=== PATIENT | female | born 1960 | race American Indian/Alaskan Native ===

== ENCOUNTER 2020-04-25 08:33 | Outpatient (CLI) | payer OTHER ==
--- NOTE | 2020-04-25 10:54 | Mammography Report ---
DIGITAL SCREENING MAMMOGRAM WITH CAD, 04/25/2020 CLINICAL INFORMATION / INDICATION: Routine screening mammography. TECHNIQUE: Digital bilateral 2D mammography was obtained in the craniocaudal and mediolateral obliqu e projections. This examination was interpreted with the benefit of Computer-Aided Detection analysis . COMPARISON: 04/01/2016, 02/28/2018 FINDINGS: Breast Density: There are scattered areas of fibroglandular density. No dominant mass, suspicious calcifications, or architectural distortion in either breast. Bilateral saline prepectoral breast implants are present and are unchanged in appearance. Overall, no interval change in the appearance of the mammogram. IMPRESSION: No mammographic evidence of malignancy. Follow up recommendation: Routine yearly BI-RADS Category 2: Benign. A "normal" or negative report should not discourage follow up or biopsy of a clinically significant f inding. A written summary of these findings will be mailed to the patient. The patient will be entered into a mammography reporting system which will generate a reminder letter for the patient's next appointmen t at the appropriate interval. The [employer] recommends yearly mammograms starting at age 40 and continuing as l demario as a woman is in good health. Breast MRI is recommended for women with an approximate 20-25% or greater lifetime risk of breast cancer, including women with a strong family history of breast or ova celestine cancer or who have been treated for Hodgkin's disease. Signer Name: Dorcas Espinosa MD Signed: 04/25/2020 10:50 AM Workstation Name: [email or web address]
== END 2020-04-25 08:34 | disposition home or self-care (01) ==
LOC: SPVWC 08:33
DX: Z12.31 Encounter for screening mammogram for malignant neoplasm of breast (principal)
CPT/HCPCS: 77067

== ENCOUNTER 2020-08-12 08:36 | Emergency (ER) | payer OTHER ==
[2020-08-12] MEDS ORDERED: ONDANSETRON 4 MG/2 ML INJ IV ONE (09:06)
[2020-08-12] MEDS ORDERED: fentaNYL 100 MCG/2 ML INJ IV ONE (09:06)
[2020-08-12] MEDS ORDERED: TETANUS,DIPH,PERTUSS(ACELL) VACCINE 0.5 ML SYRINGE IM ONE (09:06)
[2020-08-12] MEDS ORDERED: BACITRACIN ZINC OINT 28.4 GM TP ONE (09:06)
--- NOTE | 2020-08-12 09:10 | Emergency Department Report ---
HPI - General Chief Complaint: Head Injury Time Seen by Provider: 08/12/20 08:57 - HPI HPI: Room 3 The patient is a 60-year-old female present with a chief complaint of pain after fall downstairs. The patient states she was leaving for work this morning when she believes her high heels got caught in the carpet causing her to fall down approximately 6 stairs. Patient states she struck her face on the tile floor but did not lose consciousness. Patient complains of headache/facial pain, right shoulder pain and bilateral knee pain. Patient gives her pain a score of 5/10. ED Past Medical Hx - Past Medical History Hx Diabetes: Yes - Surgical History Past Surgical History?: No Additional Surgical History: HYSTO/ BREAST IMPLANTS/ HEMMRHOIDS - Family History Family history: no significant - Social History Smoking Status: Never Smoker Substance Use Type: None (Denies illicit drug use), Alcohol (Occasional) - Medications Home Medications: Home Medications Medication Instructions Recorded Confirmed Last Taken Type Cyclobenzaprine [Flexeril] 10 mg PO TID PRN #10 tablet 08/12/20 Unknown Rx HYDROcodone/APAP 5-325 [Steptoe 1 - 2 each PO Q6HR PRN #10 tablet 08/12/20 Unknown Rx 5/325] Ibuprofen [Motrin 800 MG tab] 800 mg PO Q8HR PRN #20 tablet 08/12/20 Unknown Rx ED Review of Systems ROS: Stated complaint: HEAD INJURY/FALL Other details as noted in HPI Constitutional: no symptoms reported Eyes: denies: eye pain ENT: denies: throat pain Respiratory: no symptoms reported Cardiovascular: denies: chest pain Endocrine: no symptoms reported Gastrointestinal: denies: abdominal pain Genitourinary: denies: dysuria Musculoskeletal: denies: back pain Neurological: headache Physical Exam - Physical Exam Vital Signs: Vital Signs 08/12/20 08/12/20 08:50 09:02 Temperature 98.6 F Pulse Rate 75 Respiratory 21 Rate Blood Pressure 150/82 147/82 O2 Sat by Pulse 100 100 Oximetry Physical Exam: GENERAL: The patient is well-developed well-nourished female lying on stretcher appearing slightly anxious. [] HEENT: Normocephalic. Hematoma to right forehead. Abrasion overlying right cheek. Extraocular motions are intact. Patient has moist mucous membranes. NECK: There is no axial step-off CHEST/LUNGS: Clear to auscultation. There is no respiratory distress noted. HEART/CARDIOVASCULAR: Regular. There is no tachycardia. There is no gallop rub or murmur. ABDOMEN: Abdomen is soft, nontender. Patient has normal bowel sounds. There is no abdominal distention. SKIN: Abrasion to right cheek. There is no rash. There is no edema. There is no diaphoresis. NEURO: The patient is awake, alert, and oriented. The patient is cooperative. The patient has no focal neurologic deficits. The patient has normal speech MUSCULOSKELETAL: There is tenderness to palpation of the right shoulder and bilateral knees. There is no tenderness to palpation of the axial spine, bilateral upper extremities, bilateral thighs or shins. ED Course Vital Signs 08/12/20 08/12/20 08:50 09:02 Temperature 98.6 F Pulse Rate 75 Respiratory 21 Rate Blood Pressure 150/82 147/82 O2 Sat by Pulse 100 100 Oximetry ED Medical Decision Making - Lab Data Result diagrams: 08/12/20 12:07 08/12/20 12:07 Laboratory Tests 08/12/20 08/12/20 12:07 12:07 WBC 6.0 RBC 4.05 Hgb 12.2 Hct 36.0 MCV 89 MCH 30 MCHC 34 RDW 13.6 Plt Count 224 Lymph % (Auto) 27.2 Kings % (Auto) 6.9 Eos % (Auto) 0.9 Baso % (Auto) 0.3 Lymph # (Auto) 1.6 Kings # (Auto) 0.4 Eos # (Auto) 0.1 Baso # (Auto) 0.0 Seg Neutrophils % 64.7 Seg Neutrophils # 3.9 Sodium 138 Potassium 3.8 Chloride 104.2 Carbon Dioxide 27 Anion Gap 11 BUN 12 Creatinine 0.6 Estimated GFR > 60 BUN/Creatinine Ratio 20 Glucose 98 Calcium 9.2 - Radiology Data Radiology results: report reviewed (Right shoulder x-ray, bilateral knee x-ray, CT cervical spine, CT head, CT facial bone, CT head with and without contrast), image reviewed (Right shoulder x-ray, bilateral knee x-ray, CT cervical spine, CT head, CT facial bones, CT head with and without contrast) interpreted by me: Right shoulder x-ray-no acute fracture, no dislocation. No foreign body seen Bilateral knee x-ray-no acute fracture, no dislocation. [address] [address] XRay Report Signed Patient: ARLETH GALE MR#: [id number] : 1960 Acct:[id number] Age/Sex: 60 / F ADM Date: 08/12/20 Loc: ED Attending Dr: Ordering Physician: MARYELLEN WOODS MD Date of Service: 08/12/20 Procedure(s): XR shoulder 2+V RT Accession Number(s): [id number] cc: MARYELLEN WOODS MD Fluoro Time In Minutes: Bilateral knees INDICATION: Knee pain FINDINGS: There is mild patellofemoral degenerative change with joint space narrowing in b ilateral knees. Otherwise alignment appears normal. No acute fracture dislocation. Right shoulder 3 views INDICATION: Pain FINDINGS: Mild degenerative change of the greater tuberosity. Mild AC degenerative change. No acute fracture dislocation. Signer Name: Sathish Rodríguez MD Signed: 08/12/2020 10:17 AM Workstation Name: [employer] Transcribed By: CW Dictated By: KRISHAN RODRÍGUEZ MD Electronically Authenticated By: KRISHAN RODRÍGUEZ MD Signed Date/Time: 08/12/20 1017 DD/ 1016 TD/TT: [address] [address] XRay Report Signed Patient: ARLETH GALE MR#: [id number] : [birth year] Acct:[id number] Age/Sex: 60 / F ADM Date: 08/12/20 Loc: ED Attending Dr: Ordering Physician: MARYELLEN WOODS MD Date of Service: 08/12/20 Procedure(s): XR knee BILAT 3V Accession Number(s): [id number] cc: MARYELLEN WOODS MD Fluoro Time In Minutes: Bilateral knees INDICATION: Knee pain FINDINGS: There is mild patellofemoral degenerative change with joint space narrowing in bilateral knees. Otherwise alignment appears normal. No acute fracture dislocation. Right shoulder 3 views INDICATION: Pain FINDINGS: Mild degenerative change of the greater tuberosity. Mild AC degenerative change. No acute fracture dislocation. Signer Name: Sathish Rodríguez MD Signed: 08/12/2020 10:17 AM Workstation Name: [id number] Transcribed By: CW Dictated By: KRISHAN RODRÍGUEZ MD Electronically Authenticated By: KRISHAN RODRÍGUEZ MD Signed Date/Time: 08/12/20 1017 DD/ 1016 TD/TT: Print Cancel [facility] [address] [place] [address] Cat Scan Report Signed Patient: ARLETH GALE MR#: [id number] : 1960 Acct:[id number] Age/Sex: 60 / F ADM Date: 08/12/20 Loc: ED Attending Dr: Ordering Physician: MARYELLEN WOODS MD Date of Service: 08/12/20 Procedure(s): CT cervical spine wo con Accession Number(s): [id number] cc: MARYELLEN WOODS MD CT CERVICAL SPINE WITHOUT CONTRAST INDICATION / CLINICAL INFORMATION: Pain after falling down stairs. TECHNIQUE: Axial CT images were obtained through the cervical spine. Sagittal and coronal reformatted images were produced. All CT scans at this location are performed using CT dose reduction for ALARA by means of automated exposure control. COMPARISON: None available. FINDINGS: ALIGNMENT: Normal alignment is maintained throughout cervical region. There is no indication of traumatic subluxation. VERTEBRAE: Vertebral morphology is fairly well-maintained. There is no evidence of fracture. DISC SPACES: Disc height is decreased slightly at the C5-6 and C6-7 levels. DEGENERATIVE CHANGES: Small anterior osteophytes are observed at the C5-6 and C6-7 levels. There is no indication of facet or uncovertebral arthropathy. There is no indication of neuroforaminal narrowing. CRANIOCERVICAL JUNCTION:No significant abnormality. SPINAL CANAL: Central spinal canal is adequately maintained throughout. PARASPINAL SOFT TISSUES: No significant abnormality. LUNG APICES: No significant abnormality of visualized lungs. IMPRESSION: 1. No indication of fracture, traumatic subluxation or significant degenerative change. Signer Name: Nigel Ward MD Signed: 08/12/2020 11:04 AM Workstation Name: [email or web address] Transcribed By: Dictated By: Nigel Ward MD Electronically Authenticated By: Nigel Ward MD Signed Date/Time: 08/12/20 1104 DD/ 1051 TD/TT: Print Cancel [facility] [address] [place] [id number] Cat Scan Report Signed Patient: ARLETH GALE MR#: [id number] : 1960 Acct:[id number] Age/Sex: 60 / F ADM Date: 08/12/20 Loc: ED Attending Dr: Ordering Physician: MARYELLEN WOODS MD Date of Service: 08/12/20 Procedure(s): CT head/brain wo/w con Accession Number(s): [id number] cc: MARYELLEN WOODS MD CT HEAD WITHOUT AND WITH CONTRAST INDICATION / CLINICAL INFORMATION: MAIN. Headache after fall. TECHNIQUE: All CT scans at this location are performed using CT dose reduction for ALARA by means of automated exposure control. COMPARISON: 08/12/2020 FINDINGS: HEMORRHAGE: None. EXTRA-AXIAL SPACES: Normal in size and morphology for the patient's age. The previously noted area of hyperattenuation in the right extra axial space is not visualized on this exam and may have represented volume averaging. VENTRICULAR SYSTEM: Normal in size and morphology for the patient's age. CEREBRAL PARENCHYMA: Chronic microvascular changes in the periventricular and subcortical white matter are similar. No acute territorial infarct. MIDLINE SHIFT OR HERNIATION: None. CEREBELLUM / BRAINSTEM: No significant abnormality. ORBITS: Normal as visualized. SOFT TISSUES of HEAD: . Persistent small right frontal scalp hematoma. CALVARIUM: No significant abnormality. PARANASAL SINUSES / MASTOID AIR CELLS: Normal as visualized. ADDITIONAL FINDINGS: No abnormal post contrast enhancement. IMPRESSION: 1. Persistent small right frontal scalp hematoma without acute intracranial abnormality. Signer Name: Noah Starks MD Signed: 08/12/2020 2:45 PM Workstation Name: [id number] Transcribed By: CS Dictated By: Noah Starks MD Electronically Authenticated By: Noah Starks MD Signed Date/Time: 08/12/20 1445 DD/ 1425 TD/TT: Print - Differential Diagnosis Close head injury, ICH, facial contusion, shoulder contusion, Critical care attestation.: If time is entered above; I have spent that time in minutes in the direct care of this critically ill patient, excluding procedure time. ED Disposition Clinical Impression: Closed head injury, Contusion of right shoulder, Contusion of right knee, Contusion of left knee Disposition: DC- TO HOME OR SELFCARE Is pt being admited?: No Does the pt Need Aspirin: No Condition: Stable Instructions: Contusion, Ircu-sj-Ookz, Head Injury, Adult, Xuet-kz-Psji Additional Instructions: Return to the emergency department should you develop worsening symptoms, inability to tolerate food or liquids, high fever or any other concerns Prescriptions: Cyclobenzaprine [Flexeril] 10 mg PO TID PRN #10 tablet PRN Reason: Muscle Spasm Ibuprofen [Motrin 800 MG tab] 800 mg PO Q8HR PRN #20 tablet PRN Reason: Pain, Moderate (4-6) HYDROcodone/APAP 5-325 [Steptoe 5/325] 1 - 2 each PO Q6HR PRN #10 tablet PRN Reason: Pain Referrals: PRIMARY CARE, [Primary Care Provider] - 3-5 Days Time of Disposition: 14:57
--- NOTE | 2020-08-12 10:21 | XRay Report ---
Bilateral knees INDICATION: Knee pain FINDINGS: There is mild patellofemoral degenerative change with joint space narrowing in bilateral kn ees. Otherwise alignment appears normal. No acute fracture dislocation. Right shoulder 3 views INDICATION: Pain FINDINGS: Mild degenerative change of the greater tuberosity. Mild AC degenerative change. No acute f racture dislocation. Signer Name: Sathish Rodríguez MD Signed: 08/12/2020 10:17 AM Workstation Name: [facility] [id number]
--- NOTE | 2020-08-12 10:21 | XRay Report ---
Bilateral knees INDICATION: Knee pain FINDINGS: There is mild patellofemoral degenerative change with joint space narrowing in bilateral kn ees. Otherwise alignment appears normal. No acute fracture dislocation. Right shoulder 3 views INDICATION: Pain FINDINGS: Mild degenerative change of the greater tuberosity. Mild AC degenerative change. No acute f racture dislocation. Signer Name: Sathish Rodríguez MD Signed: 08/12/2020 10:17 AM Workstation Name: [facility] [id number]
--- NOTE | 2020-08-12 11:07 | Cat Scan Report ---
NONENHANCED CT SCAN OF THE HEAD: INDICATION / CLINICAL INFORMATION: 60 years Female; Pain after falling down stairs. TECHNIQUE: Routine CT head without contrast. All CT scans at this location are performed using CT dos e reduction for ALARA by means of automated exposure control. COMPARISON: None. FINDINGS: BRAIN / INTRACRANIAL CONTENTS: Right supraorbital scalp hematoma; focal extra-axial lesion with incre ased CT attenuation measuring 2 to 3 mm (image #24 in the transverse plane); though trauma to the ri ght side, this appears to be rather than a hematoma. I would like to repeat the CT scan before and af ter intravenous contrast in a week if symptoms do not progress. No cerebral hemorrhage, mass effect, midline shift, hydrocephalus, or acute, large territorial infarc t. No chronic infarct or focal atrophy. Normal brain volume and ventricular/sulcal size for age. No s ignificant white matter abnormality. CRANIOCERVICAL JUNCTION: No significant abnormality. ORBITS: No significant abnormality of visualized orbits. SINUSES / MASTOIDS: No significant abnormality of the visualized paranasal sinuses or mastoid air susu ls. ADDITIONAL FINDINGS: Partial empty sella IMPRESSION: Right supraorbital scalp hematoma; 2 to 3 mm sized small extra-axial lesion in the right frontal johan on; this appears to be more meningioma; if symptoms do not progress, please repeat nonenhanced and co ntrast-enhanced CT scan Signer Name: Ramandeep Myles MD Signed: 08/12/2020 11:02 AM Workstation Name: [id number]
--- NOTE | 2020-08-12 11:08 | Cat Scan Report ---
CT CERVICAL SPINE WITHOUT CONTRAST INDICATION / CLINICAL INFORMATION: Pain after falling down stairs. TECHNIQUE: Axial CT images were obtained through the cervical spine. Sagittal and coronal reformatted images wer e produced. All CT scans at this location are performed using CT dose reduction for ALARA by means of automated exposure control. COMPARISON: None available. FINDINGS: ALIGNMENT: Normal alignment is maintained throughout cervical region. There is no indication of traum atic subluxation. VERTEBRAE: Vertebral morphology is fairly well-maintained. There is no evidence of fracture. DISC SPACES: Disc height is decreased slightly at the C5-6 and C6-7 levels. DEGENERATIVE CHANGES: Small anterior osteophytes are observed at the C5-6 and C6-7 levels. There is n o indication of facet or uncovertebral arthropathy. There is no indication of neuroforaminal narrowin g. CRANIOCERVICAL JUNCTION:No significant abnormality. SPINAL CANAL: Central spinal canal is adequately maintained throughout. PARASPINAL SOFT TISSUES: No significant abnormality. LUNG APICES: No significant abnormality of visualized lungs. IMPRESSION: 1. No indication of fracture, traumatic subluxation or significant degenerative change. Signer Name: Nigel Ward MD Signed: 08/12/2020 11:04 AM Workstation Name: [id number]
--- NOTE | 2020-08-12 11:12 | Cat Scan Report ---
CT MAXILLOFACIAL WITHOUT CONTRAST INDICATION / CLINICAL INFORMATION: Right facial pain after fall downstairs. TECHNIQUE: All CT scans at this location are performed using CT dose reduction for ALARA by means of automated e xposure control. COMPARISON: None available. FINDINGS: Soft tissue face: There is a scalp hematoma involving the right forehead extending down into the johan on of the superior orbital rim. FACIAL BONES: No fracture or other significant abnormality. STEEPLE JACK SPACES:Evaluation of the clearing house clerk space structures reveal no abnormalities. SALIVARY GLANDS: Parotid and submandibular salivary glands have an unremarkable appearance. PARANASAL SINUSES: No significant abnormality. NASAL CAVITY: Paradoxical curvature of the middle turbinates is noted. Hyperinflation of inferior eth moid air cells is observed. This contributes to narrowing of the air passageways of the OM U bilatera lly, left worse than right. ORBITS: Globes, optic nerves and extraocular muscles have an unremarkable appearance. TEMPORAL BONES:Visualized mastoid air cells and the middle ear cavities are normally pneumatized. VISUALIZED INTRACRANIAL STRUCTURES: Refer to CT head which is dictated separately. IMPRESSION: 1. No indication of facial fracture. 2. Scalp hematoma involving the right forehead. Signer Name: Nigel Ward MD Signed: 08/12/2020 11:07 AM Workstation Name: [employer]
[2020-08-12 12:53] LABS: Basophils % (Auto) 0.3 % (0.0-1.8); Eosinophils # (Auto) 0.1 K/mm3 (0.0-0.4); Eosinophils % (Auto) 0.9 % (0.0-4.3); Hemoglobin 12.2 gm/dl (10.1-14.3); Lymphocytes # (Auto) 1.6 K/mm3 (1.2-5.4); Lymphocytes % (Auto) 27.2 % (13.4-35.0); Mean Corpuscular HGB Conc 34 % (30-34); Mean Corpuscular Volume 89 fl (79-97); Monocytes # (Auto) 0.4 K/mm3 (0.0-0.8); Monocytes % (Auto) 6.9 % (0.0-7.3); Platelet Count 224 K/mm3 (140-440); Red Blood Count 4.05 M/mm3 (3.65-5.03); Red Cell Distribution Width 13.6 % (13.2-15.2)
[2020-08-12 13:05] LABS: BUN/Creatinine Ratio 20; Blood Urea Nitrogen 12 mg/dL (7-17); Calcium 9.2 mg/dL (8.4-10.2); Hemolysis Index 6
--- NOTE | 2020-08-12 14:50 | Cat Scan Report ---
CT HEAD WITHOUT AND WITH CONTRAST INDICATION / CLINICAL INFORMATION: MAIN. Headache after fall. TECHNIQUE: All CT scans at this location are performed using CT dose reduction for ALARA by means of automated e xposure control. COMPARISON: 08/12/2020 FINDINGS: HEMORRHAGE: None. EXTRA-AXIAL SPACES: Normal in size and morphology for the patient's age. The previously noted area of hyperattenuation in the right extra axial space is not visualized on this exam and may have represen jermaine volume averaging. VENTRICULAR SYSTEM: Normal in size and morphology for the patient's age. CEREBRAL PARENCHYMA: Chronic microvascular changes in the periventricular and subcortical white matte r are similar. No acute territorial infarct. MIDLINE SHIFT OR HERNIATION: None. CEREBELLUM / BRAINSTEM: No significant abnormality. ORBITS: Normal as visualized. SOFT TISSUES of HEAD: . Persistent small right frontal scalp hematoma. CALVARIUM: No significant abnormality. PARANASAL SINUSES / MASTOID AIR CELLS: Normal as visualized. ADDITIONAL FINDINGS: No abnormal post contrast enhancement. IMPRESSION: 1. Persistent small right frontal scalp hematoma without acute intracranial abnormality. Signer Name: Noah Starks MD Signed: 08/12/2020 2:45 PM Workstation Name: [id number]
[2020-08-12 14:57] VITALS: BP 110/65
== END 2020-08-12 16:30 | disposition home or self-care (01) ==
LOC: ED 08:36
DX: S09.90XA Unspecified injury of head, initial encounter (principal); S40.011A Contusion of right shoulder, initial encounter; S80.02XA Contusion of left knee, initial encounter; S80.01XA Contusion of right knee, initial encounter; E11.9 Type 2 diabetes mellitus without complications; Z98.890 Other specified postprocedural states; Z79.1 Long term (current) use of non-steroidal anti-inflammatories (NSAID); Z79.899 Other long term (current) drug therapy; Z88.0 Allergy status to penicillin; W10.9XXA Fall (on) (from) unspecified stairs and steps, initial encounter; Y93.89 Activity, other specified; Y92.89 Other specified places as the place of occurrence of the external cause; Y99.8 Other external cause status
CPT/HCPCS: 36415; 70450; 70470; 70486; 72125; 73030; 73562; 80048; 85025; 90471; 90715; 96374; 96375; 99284; J2405; J3010; Q9967